=== PATIENT | male | born 1945 | race Caucasian/White ===

== ENCOUNTER 2022-06-27 20:07 | Inpatient (IN) | payer MEDICARE, OTHER ==
[~2022-06-27] VITALS: Ht 175.3 cm; Wt 81.6 kg
[2022-06-27] MEDS ORDERED: CLONIDINE HCL 0.1 MG TAB PO PRN (20:30)
[2022-06-27] MEDS ORDERED: ONDANSETRON HCL INJ 2MG/ML 2ML 2 MG/ML VIAL IV PRN (20:30)
[2022-06-27] MEDS ORDERED: ACETAMINOPHEN 325 MG TAB PO PRN (20:30)
[2022-06-27] MEDS ORDERED: Morphine 2mg Syringe 2 MG/ML SYR IV PRN (20:30)
[2022-06-27 20:38] VITALS: BP 175/77
[2022-06-27 21:25] VITALS: BP 175/77
[2022-06-28] VITALS: BP 125/53
[2022-06-28 04:00] VITALS: BP 130/74
[2022-06-28 05:53] LABS: BASOPHILS % 0.3 % (0.0-1.0); EOSINOPHILS # (AUTO) 0.2 (0.0-0.4); EOSINOPHILS % 2.2 % (0.0-6.0); HEMATOCRIT 44.8 % (38.2-49.6); HEMOGLOBIN 14.1 g/dL (14.0-18.0); LYMPHOCYTES # (AUTO) 1.4 (1.0-3.2); LYMPHOCYTES % 18.5 % (18.0-39.1); MEAN CORPUSCULAR HEMOGLOBIN 29.8 pg (28-32); MEAN CORPUSCULAR HGB CONC 31.5 g/dL (31-35); MEAN CORPUSCULAR VOLUME 94.7 fL (81-99); MONOCYTES # (AUTO) 0.7 (0.2-0.8); MONOCYTES % 9.1 % (4.4-11.3); NEUTROPHILS # (AUTO) 5.1 (2.1-6.9); NEUTROPHILS % 69.8 % (38.7-80.0); PLATELET COUNT 144 x10e3/uL (140-360); RED BLOOD COUNT 4.73 x10e6/uL (4.3-5.7); RED CELL DISTRIBUTION WIDTH 13.8 % (11.7-14.4)
[2022-06-28 06:17] LABS: ALBUMIN 3.7 g/dL (3.5-5.0); ALBUMIN/GLOBULIN RATIO 1.5 (0.8-2.0); ANION GAP 13.5 mmol/L (8-16); CALCIUM 9.2 mg/dL (8.4-10.2); CHOL/HDL RATIO 3.2 (3.9-4.7); CREATININE, SERUM 0.89 mg/dL (0.72-1.25); POTASSIUM 4.5 mmol/L (3.5-5.1)
[2022-06-28] MEDS ORDERED: AMLODIPINE BESY10 MG PO (06:37)
[2022-06-28] MEDS ORDERED: PLAVIX75 MG PO (06:37)
[2022-06-28] MEDS ORDERED: TADALAFIL20 M1 PO (06:37)
[2022-06-28] MEDS ORDERED: ELIQUIS5 MG PO (06:37)
[2022-06-28] MEDS ORDERED: CRESTOR10 MG PO (06:37)
[2022-06-28 08:16] VITALS: BP 125/61
[2022-06-28 09:00] VITALS: BP 125/61
[2022-06-28] MEDS ORDERED: ASPIRIN 81 MG ENTERIC COATED PO SCH (09:00)
[2022-06-28 12:03] VITALS: BP 132/83
== END 2022-06-28 12:18 | disposition left against medical advice (07) | DRG 312 ==
LOC: MED/SURG 20:07
PROVIDERS: ADMIT Internal Medicine; ATTEND Internal Medicine
DX: R55 Syncope and collapse (principal); Z53.21 Procedure and treatment not carried out due to patient leaving prior to being seen by health care provider; W19.XXXA Unspecified fall, initial encounter; Y92.89 Other specified places as the place of occurrence of the external cause; Z20.822 Contact with and (suspected) exposure to COVID-19
CPT/HCPCS: 36415; 80053; 80061; 82607; 84443; 85025; 94799

== ENCOUNTER 2022-08-10 17:57 | Emergency (ER) | payer MEDICARE ==
[~2022-08-10] VITALS: Ht 172.7 cm; Wt 82.6 kg
[~2022-08-10 17:57] MED LIST: AMLODIPINE BESY10 MG PO; CRESTOR10 MG PO; ELIQUIS5 MG PO; PLAVIX75 MG PO; TADALAFIL20 M1 PO
[2022-08-10] MEDS ORDERED: AMOX TR-K CLV1 EAC2 PO (19:58)
[2022-08-10 20:06] VITALS: BP 152/70
== END 2022-08-10 20:06 | disposition home or self-care (01) ==
LOC: FSED 18:09
DX: K11.20 Sialoadenitis, unspecified (principal); R68.84 Jaw pain; I10 Essential (primary) hypertension; I25.810 Atherosclerosis of coronary artery bypass graft(s) without angina pectoris; E78.5 Hyperlipidemia, unspecified; Z79.02 Long term (current) use of antithrombotics/antiplatelets; Z79.899 Other long term (current) drug therapy; Z95.1 Presence of aortocoronary bypass graft; Z95.5 Presence of coronary angioplasty implant and graft
CPT/HCPCS: 99282

== ENCOUNTER 2024-02-13 09:16 | Emergency (ER) | payer MEDICARE ==
[~2024-02-13] VITALS: Ht 172.7 cm; Wt 80.8 kg
[~2024-02-13 09:16] MED LIST changes: +AMOX TR-K CLV1 EAC2 PO
[2024-02-13 09:55] VITALS: PULSE 94; RESP 16; TEMP 98.8; O2SAT 98
== END 2024-02-13 09:55 | disposition home or self-care (01) ==
LOC: FSED 09:21
DX: R05.9 Cough, unspecified (principal); J06.9 Acute upper respiratory infection, unspecified; I10 Essential (primary) hypertension; E78.5 Hyperlipidemia, unspecified; I48.91 Unspecified atrial fibrillation; I25.10 Atherosclerotic heart disease of native coronary artery without angina pectoris; N52.9 Male erectile dysfunction, unspecified; Z95.1 Presence of aortocoronary bypass graft; Z98.2 Presence of cerebrospinal fluid drainage device
CPT/HCPCS: 99282

== ENCOUNTER 2024-07-22 15:55 | Emergency (ER) | payer MEDICARE ==
[2024-07-22 16:00] VITALS: PULSE 70; RESP 20; TEMP 97.9; O2SAT 96
[2024-07-22] MEDS ORDERED: ARICEPT10 MG PO (16:12)
[2024-07-22] MEDS ORDERED: ATORVASTATIN CA10 MG PO (16:12)
[2024-07-22] MEDS ORDERED: MEMANTINE HCL5 MG (16:12)
[2024-07-22] MEDS ORDERED: SERTRALINE HCL50 MG PO (16:12)
[2024-07-22] MEDS ORDERED: OXYBUTYNIN CHLOR5 M1 PO (16:12)
[2024-07-22] MEDS ORDERED: METOPROLOL SUCC25 MG PO (16:12)
[2024-07-22] MEDS ORDERED: FAMOTIDINE20 MG PO (16:12)
[2024-07-22] MEDS ORDERED: ALBUTEROL/IPRATROPIUM 3 ML NEB NEB ONE (16:15)
[2024-07-22] MEDS: AMOXICILLIN/CLAVULANATE K 875 MG TAB PO STA (16:52)
[2024-07-22] MEDS ORDERED: AMOXICILLIN500 MG PO (16:55)
[2024-07-22] MEDS ORDERED: CORICIDIN HBP1 EAC3 PO (16:56)
== END 2024-07-22 17:17 | disposition home or self-care (01) ==
LOC: FSED 15:59
DX: R05.9 Cough, unspecified (principal); J06.9 Acute upper respiratory infection, unspecified; F03.90 Unspecified dementia, unspecified severity, without behavioral disturbance, psychotic disturbance, mood disturbance, and anxiety; I10 Essential (primary) hypertension; I48.91 Unspecified atrial fibrillation; I25.10 Atherosclerotic heart disease of native coronary artery without angina pectoris; E78.5 Hyperlipidemia, unspecified; Z11.52 Encounter for screening for COVID-19; Z95.1 Presence of aortocoronary bypass graft
CPT/HCPCS: 0223U; 71046; 87400; 99284

== ENCOUNTER 2024-11-13 16:31 | Emergency (ER) | payer MEDICARE ==
[~2024-11-13] VITALS: Ht 172.7 cm; Wt 77.1 kg
[~2024-11-13 16:31] MED LIST changes: +AMOXICILLIN500 MG PO; +ARICEPT10 MG PO; +ATORVASTATIN CA10 MG PO; +CORICIDIN HBP1 EAC3 PO; +FAMOTIDINE20 MG PO; +MEMANTINE HCL5 MG; +METOPROLOL SUCC25 MG PO; +OXYBUTYNIN CHLOR5 M1 PO; +SERTRALINE HCL50 MG PO
[2024-11-13 16:34] VITALS: TEMP 98.4
[2024-11-13] MEDS ORDERED: IOPAMIDOL 370 MG/ML 100 ML INFUS..BTL INJ ONE (17:07)
[2024-11-13] MEDS ORDERED: SODIUM CHLORIDE 0.9% 100 ML ONE (17:07)
[2024-11-13 20:00] VITALS: PULSE 74; RESP 18
[2024-11-13] MEDS: ASPIRIN 325 MG TAB PO STA (20:22)
[2024-11-13 20:40] VITALS: BP 169/94; O2SAT 98
== END 2024-11-13 20:20 | disposition home or self-care (01) ==
LOC: FSED 16:37
DX: R53.1 Weakness (principal); I65.22 Occlusion and stenosis of left carotid artery; I10 Essential (primary) hypertension; E78.5 Hyperlipidemia, unspecified; I48.91 Unspecified atrial fibrillation; I25.10 Atherosclerotic heart disease of native coronary artery without angina pectoris; F03.90 Unspecified dementia, unspecified severity, without behavioral disturbance, psychotic disturbance, mood disturbance, and anxiety; N52.9 Male erectile dysfunction, unspecified; G91.2 (Idiopathic) normal pressure hydrocephalus; Z98.2 Presence of cerebrospinal fluid drainage device; Z95.1 Presence of aortocoronary bypass graft
CPT/HCPCS: 70496; 70498; 80048; 84484; 85025; 93005; 99284; J7050; Q9967

== ENCOUNTER 2025-01-16 12:05 | Emergency (ER) | payer MEDICARE ==
[~2025-01-16] VITALS: Ht 172.7 cm; Wt 77.8 kg
[~2025-01-16 12:05] MED LIST changes: -MEMANTINE HCL5 MG; +MEMANTINE HCL5 MG PO
[2025-01-16 12:18] VITALS: PULSE 71; RESP 18; TEMP 97.5; O2SAT 97
[2025-01-16] MEDS ORDERED: TRIAMCINOLONE A15 G3 EXT (12:47)
[2025-01-16] MEDS ORDERED: VITAMIN B-121000 MC2 PO (14:47)
[2025-01-16] MEDS ORDERED: VITAMIN A PO (14:47)
[2025-01-16] MEDS ORDERED: QUETIAPINE FUMA25 MG PO (14:47)
[2025-01-16] MEDS ORDERED: VITAMIN D350 MCG (14:47)
[2025-01-16] MEDS ORDERED: WIXELA 100-501 EACH (14:47)
[2025-01-16] MEDS ORDERED: OMEGA 3 FISH O1 EACH PO (14:47)
[2025-01-16] MEDS ORDERED: CICLOPIROX15 GM TOP (14:47)
[2025-01-16] MEDS ORDERED: PRESERVISION A1 EAC4 (14:47)
[2025-01-16] MEDS ORDERED: OYSTER SHELL 51 EACH PO (14:47)
[2025-01-16] MEDS ORDERED: GUAIFENESIN-CO118 ML PO (14:47)
[2025-01-16] MEDS ORDERED: NORVASC5 MG PO (14:47)
== END 2025-01-16 12:55 | disposition home or self-care (01) ==
LOC: FSED 12:16
DX: L30.9 Dermatitis, unspecified (principal); I10 Essential (primary) hypertension; I48.91 Unspecified atrial fibrillation; I25.10 Atherosclerotic heart disease of native coronary artery without angina pectoris; E78.5 Hyperlipidemia, unspecified; M54.9 Dorsalgia, unspecified; G89.29 Other chronic pain; F03.90 Unspecified dementia, unspecified severity, without behavioral disturbance, psychotic disturbance, mood disturbance, and anxiety; Z95.1 Presence of aortocoronary bypass graft; G91.2 (Idiopathic) normal pressure hydrocephalus; Z98.2 Presence of cerebrospinal fluid drainage device
CPT/HCPCS: 99283